=== PATIENT | female | born 1975 | race African-American/Black ===

== ENCOUNTER 2017-08-16 09:12 | Emergency (ER) | payer BC ==
--- NOTE | 2017-08-16 09:28 | EDM.PDOC ---
ED HPI GENERAL MEDICAL PROBLEM - General Chief Complaint: Back Pain or Injury Stated Complaint: LOWER BACK PAIN Time Seen by Provider: 08/16/17 09:24 - History of Present Illness INITIAL COMMENTS - FREE TEXT/NARRATIVE: HISTORY AND PHYSICAL: History of present illness: Patient's 42-year-old female presents with concern of low back pain that occurred after she was roughhousing with her children. She denies numbness weakness or incontinence of bowel or bladder she denies abdominal pain nausea vomiting or other concern Review of systems: As per history of present illness and below otherwise all systems reviewed and negative. Past medical history: As per history of present illness and as reviewed below otherwise noncontributory. Surgical history: As per history of present illness and as reviewed below otherwise noncontributory. Social history: No reported history of drug or alcohol abuse. Family history: As per history of present illness and as reviewed below otherwise noncontributory. Physical exam: HEENT: Atraumatic, normocephalic, pupils reactive, negative for conjunctival pallor or scleral icterus, mucous membranes moist, throat clear, neck supple, nontender, trachea midline. Lungs: Clear to auscultation, breath sounds equal bilaterally, chest nontender. Heart: S1S2, regular, negative for clicks, rubs, or JVD. Abdomen: Soft, nondistended, nontender. Negative for masses or hepatosplenomegaly. Negative for costovertebral tenderness. Pelvis: Stable nontender. Genitourinary: Deferred. Rectal: Deferred. Extremities: Atraumatic, negative for cords or calf pain. Neurovascular unremarkable. Neuro: Awake, alert, oriented. Cranial nerves II through XII unremarkable. Cerebellum unremarkable. Motor and sensory unremarkable throughout. Exam nonfocal. Back: Patient is some mild paravertebral tenderness at the level lumbar spine no vertebral body or point tenderness deep tendon reflexes are normal patient is able to stand on her toes back on her heels Diagnostics: Patient defers Therapeutics: None Impression: #1 lumbar strain #2 hypertension Definitive disposition and diagnosis as appropriate pending reevaluation and review of above. - Related Data Allergies Allergy/AdvReac Type Severity Reaction Status Date / Time No Known Allergies Allergy Verified 10/21/14 10:14 Home Meds: Home Meds . [No Known Home Meds] 10/21/14 [History] Social & Family History - Tobacco Use Smoking Status *Q: Current Every Day Smoker Years of Tobacco use: 10 Second Hand Smoke Exposure: No - Recreational Drug Use Recreational Drug Use: No ED ROS GENERAL - Review of Systems Review Of Systems: ROS reveals no pertinent complaints other than HPI. ED EXAM, GENERAL - Physical Exam Exam: See Below (dictation) Course - Vital Signs Text/Narrative:: I discussed with patient her elevated blood pressure and the need for further evaluation and possible medication patient defers workupshe'll see her private doctor on Friday she does agree to pain management for her lumbar strain Departure - Departure Time of Disposition: 09:28 Disposition: Home, Self-Care 01 Condition: Good Clinical Impression: Lumbar strain - Discharge Information Referrals: PCP,None [Primary Care Provider] - Additional Instructions: The following information is given to patients seen in the emergency department who are being discharged to home. This information is to outline your options for follow-up care. We provide all patients seen in our emergency department with a follow-up referral. The need for follow-up, as well as the timing and circumstances, are variable depending upon the specifics of your emergency department visit. If you don't have a primary care physician on staff, we will provide you with a referral. We always advise you to contact your personal physician following an emergency department visit to inform them of the circumstance of the visit and for follow-up with them and/or the need for any referrals to a consulting specialist. The emergency department will also refer you to a specialist when appropriate. This referral assures that you have the opportunity for followup care with a specialist. All of these measure are taken in an effort to provide you with optimal care, which includes your followup. Under all circumstances we always encourage you to contact your private physician who remains a resource for coordinating your care. When calling for followup care, please make the office aware that this follow-up is from your recent emergency room visit. If for any reason you are refused follow-up, please contact the [facility] emergency department at and asked to speak to the emergency department charge nurse. Ultram as prescribed follow-up on Friday private doctor for reevaluation and review of blood pressure as discussed return as needed as discussed
[2017-08-16 09:44] VITALS: BP 188/126
== END 2017-08-16 09:36 | disposition home or self-care (01) ==
LOC: MW.ED 09:12
DX: S39.012A Strain of muscle, fascia and tendon of lower back, initial encounter (principal); F17.210 Nicotine dependence, cigarettes, uncomplicated; I10 Essential (primary) hypertension; X58.XXXA Exposure to other specified factors, initial encounter
CPT/HCPCS: 99282

== ENCOUNTER 2017-12-31 14:25 | Emergency (ER) | payer BC ==
[2017-12-31 14:55] VITALS: BP 152/83
[2017-12-31] MEDS ORDERED: Ketorolac 60 MG/2 ML SDV IM ONE (15:00)
--- NOTE | 2017-12-31 15:04 | EDM.PDOC ---
ED HPI GENERAL MEDICAL PROBLEM - General Chief Complaint: Back Pain or Injury Stated Complaint: BACK HURTS Time Seen by Provider: 12/31/17 14:59 Source of Information: Reports: Patient History Limitations: Reports: No Limitations - History of Present Illness INITIAL COMMENTS - FREE TEXT/NARRATIVE: HISTORY AND PHYSICAL: History of present illness: Patient is a 42-year-old female here with complaint of low back pain. She states that she works at [employer] and was lifting boxes that weighed up to 50 pounds above her head and onto a shelf 5 days ago. Patient states that she started expanding low back pain shortly after that. She has had a history of low back pain. Patient denies any lower extremity numbness or tingling, extremity weakness, saddle anesthesia, footdrop, bowel or bladder incontinence, fever, chills. Patient's been using [id number] topical cream with little relief. Review of systems: As per history of present illness and below otherwise all systems reviewed and negative. Past medical history: As per history of present illness and as reviewed below otherwise noncontributory. Surgical history: As per history of present illness and as reviewed below otherwise noncontributory. Social history: No reported history of drug or alcohol abuse. Family history: As per history of present illness and as reviewed below otherwise noncontributory. Physical exam: General: Patient sitting comfortably in no acute distress and nontoxic appearing HEENT: Atraumatic, normocephalic, pupils reactive, negative for conjunctival pallor or scleral icterus, mucous membranes moist, throat clear, neck supple, nontender, trachea midline. No meningeal signs. Lungs: Clear to auscultation, breath sounds equal bilaterally, chest nontender. Heart: S1S2, regular, negative for clicks, rubs, or overt murmur. Abdomen: Soft, nondistended, nontender. Negative for masses or hepatosplenomegaly. Negative for costovertebral tenderness. Pelvis: Stable nontender. Genitourinary: Deferred. Rectal: Deferred. Spine: tender to palpation of lumbar paraspinals bilaterally. Patellar reflexes 2+. Inversion, eversion, dorsi and plantar flexion strength 5/5. Extremities: Atraumatic, negative for cords or calf pain. Neurovascular unremarkable. Neuro: Awake, alert, oriented. Cranial nerves II through XII unremarkable. Cerebellum unremarkable. Motor and sensory unremarkable throughout. Exam nonfocal. Notes: Diagnostics: None Therapeutics: Toradol 60mg IM Prescriptions: Diclofenac 75mg Flexeril 10mg Impression: Lumbar back sprain Plan: 1. Take medications as discussed. Heat or ice as needed. 2. Follow up with primary care provider. 3. Return to ED as needed as discussed. Definitive disposition and diagnosis as appropriate pending reevaluation and review of above. lower back Pain Score (Numeric/FACES): 8 - Related Data Allergies Allergy/AdvReac Type Severity Reaction Status Date / Time No Known Allergies Allergy Verified 12/31/17 14:43 Home Meds: Home Meds Cyclobenzaprine [Flexeril] 10 mg PO BEDTIME 10 Days #10 tab 12/31/17 [Rx] Diclofenac Sodium [Voltaren] 75 mg PO BIDMEALS 10 Days #20 tab.cr 12/31/17 [Rx] Past Medical History - Past Health History Medical/Surgical History: Denies Medical/Surgical History - Infectious Disease History Infectious Disease History: Reports: Chicken Pox - Past Surgical History Female Surgical History: Reports: Hysterectomy Social & Family History - Family History Family Medical History: Noncontributory - Tobacco Use Smoking Status *Q: Current Every Day Smoker Years of Tobacco use: 10 Packs/Tins Daily: 0.6 Second Hand Smoke Exposure: Yes - Caffeine Use Caffeine Use: Reports: Energy Drinks - Recreational Drug Use Recreational Drug Use: No ED ROS GENERAL - Review of Systems Review Of Systems: ROS reveals no pertinent complaints other than HPI. ED EXAM,LOWER BACK PAIN/INJURY - Physical Exam Exam: See Below (see dictation) Course - Vital Signs Last Recorded V/S: Last Vital Signs Temp 36.7 C 12/31/17 14:43 Pulse 90 12/31/17 14:43 Resp 16 12/31/17 14:43 BP 152/83 H 12/31/17 14:43 Pulse Ox 98 12/31/17 14:43 - Orders/Labs/Meds Orders: Active Orders 24 hr Category Date Time Status Hand Comp Min 3V Rt [CR] Stat Exams 12/31/17 14:44 Stop Req Departure - Departure Time of Disposition: 15:03 Disposition: Home, Self-Care 01 Condition: Good Clinical Impression: Lumbar back sprain - Discharge Information Prescriptions: Cyclobenzaprine [Flexeril] 10 mg PO BEDTIME 10 Days #10 tab Diclofenac Sodium [Voltaren] 75 mg PO BIDMEALS 10 Days #20 tab.cr Referrals: PCP,None [Primary Care Provider] - Additional Instructions: The following information is given to patients seen in the emergency department who are being discharged to home. This information is to outline your options for follow-up care. We provide all patients seen in our emergency department with a follow-up referral. The need for follow-up, as well as the timing and circumstances, are variable depending upon the specifics of your emergency department visit. If you don't have a primary care physician on staff, we will provide you with a referral. We always advise you to contact your personal physician following an emergency department visit to inform them of the circumstance of the visit and for follow-up with them and/or the need for any referrals to a consulting specialist. The emergency department will also refer you to a specialist when appropriate. This referral assures that you have the opportunity for follow-up care with a specialist. All of these measure are taken in an effort to provide you with optimal care, which includes your follow-up. Under all circumstances we always encourage you to contact your private physician who remains a resource for coordinating your care. When calling for follow-up care, please make the office aware that this follow-up is from your recent emergency room visit. If for any reason you are refused follow-up, please contact the [facility] Emergency Department at and asked to speak to the emergency department charge nurse. [facility] [address] [place] [id number] [facility] [address] [place] [id number] 1. Take medications as discussed. Heat or ice as needed. 2. Follow up with primary care provider. 3. Return to ED as needed as discussed.
== END 2017-12-31 15:27 | disposition home or self-care (01) ==
LOC: MW.ED 14:25
DX: S33.5XXA Sprain of ligaments of lumbar spine, initial encounter (principal); F17.210 Nicotine dependence, cigarettes, uncomplicated; X50.1XXA Overexertion from prolonged static or awkward postures, initial encounter
CPT/HCPCS: 96372; 99283; J1885

== ENCOUNTER 2018-11-19 13:36 | Emergency (ER) | payer SELFPAY ==
--- NOTE | 2018-11-19 13:49 | EDM.PDOC ---
ED HPI GENERAL MEDICAL PROBLEM - General Stated Complaint: HEADACHE Time Seen by Provider: 11/19/18 13:45 Source of Information: Reports: Patient History Limitations: Reports: No Limitations - History of Present Illness INITIAL COMMENTS - FREE TEXT/NARRATIVE: History of present illness: [] Review of systems: As per history of present illness and below otherwise all systems reviewed and negative. Past medical history: As per history of present illness and as reviewed below otherwise noncontributory. Surgical history: As per history of present illness and as reviewed below otherwise noncontributory. Social history: No reported history of drug or alcohol abuse. Family history: As per history of present illness and as reviewed below otherwise noncontributory. Physical exam: General: Well developed, well nourished in NAD HEENT: Atraumatic, normocephalic, pupils reactive, negative for conjunctival pallor or scleral icterus, mucous membranes moist, throat clear, neck supple, nontender, trachea midline. Lungs: Clear to auscultation, breath sounds equal bilaterally, chest nontender. Heart: S1S2, regular, negative for clicks, rubs, or JVD. Abdomen: NABS, Soft, nondistended, nontender. Negative for masses or hepatosplenomegaly. Negative for costovertebral tenderness. Pelvis: Stable nontender. Genitourinary: Deferred. Rectal: Deferred. Extremities: Atraumatic, negative for cords or calf pain. Neurovascular unremarkable. Neuro: Awake, alert, oriented. Cranial nerves II through XII unremarkable. Cerebellum unremarkable. Motor and sensory unremarkable throughout. Exam nonfocal. Skin:warm and dry Diagnostics: Therapeutics: ED Course: Impression: Prescriptions: Plan: Definitive disposition and diagnosis as appropriate pending reevaluation and review of above. - Related Data Allergies Allergy/AdvReac Type Severity Reaction Status Date / Time No Known Allergies Allergy Verified 12/31/17 14:43 Home Meds: Home Meds Cyclobenzaprine [Flexeril] 10 mg PO BEDTIME 10 Days #10 tab 12/31/17 [Rx] Diclofenac Sodium [Voltaren] 75 mg PO BIDMEALS 10 Days #20 tab.cr 12/31/17 [Rx] Past Medical History - Past Health History Medical/Surgical History: Denies Medical/Surgical History - Infectious Disease History Infectious Disease History: Reports: Chicken Pox - Past Surgical History Female Surgical History: Reports: Hysterectomy Social & Family History - Family History Family Medical History: Noncontributory - Caffeine Use Caffeine Use: Reports: Energy Drinks ED ROS GENERAL - Review of Systems Review Of Systems: See Below - Physical Exam Exam: See Below
== END 2018-11-19 14:36 | disposition left against medical advice (07) ==
LOC: MW.ED 13:36
DX: Z53.21 Procedure and treatment not carried out due to patient leaving prior to being seen by health care provider (principal)

== ENCOUNTER 2018-12-02 15:53 | Emergency (ER) | payer SELFPAY ==
[2018-12-02] MEDS ORDERED: Sodium Chloride 0.9% 2.5 ML Syringe FLUSH PRN (16:07)
[2018-12-02] MEDS ORDERED: Sodium Chloride 0.9% 1,000 ML IV ONE (16:07)
[2018-12-02] MEDS ORDERED: Sodium Chloride 0.9% 10 ML Syringe FLUSH PRN (16:07)
[2018-12-02] MEDS ORDERED: Labetalol 100 MG/20 ML MDV IVPUSH ONE ×2 (16:07→17:09)
--- NOTE | 2018-12-02 16:12 | EDM.PDOC ---
ED HPI GENERAL MEDICAL PROBLEM - General Chief Complaint: Headache Stated Complaint: HEADACHE Time Seen by Provider: 12/02/18 16:06 Source of Information: Reports: Patient History Limitations: Reports: No Limitations - History of Present Illness INITIAL COMMENTS - FREE TEXT/NARRATIVE: HISTORY AND PHYSICAL: History of present illness: Patient is a 43-year-old female presents to the ED with Tarik headache 2 days. She is complaining of pain across her forehead, nausea and states she has been having dizziness when standing up. She denies fevers, chills, chest pain, shortness of breath, vomiting, diarrhea, abdominal pain, visual changes. Denies significant past medical history Review of systems: As per history of present illness and below otherwise all systems reviewed and negative. Past medical history: As per history of present illness and as reviewed below otherwise noncontributory. Surgical history: As per history of present illness and as reviewed below otherwise noncontributory. Social history: No reported history of drug or alcohol abuse. Family history: As per history of present illness and as reviewed below otherwise noncontributory. Physical exam: General: Patient sitting comfortably in no acute distress and nontoxic appearing HEENT: Atraumatic, normocephalic, pupils reactive, negative for conjunctival pallor or scleral icterus, mucous membranes moist, throat clear, neck supple, nontender, trachea midline. No meningeal signs. Lungs: Clear to auscultation, breath sounds equal bilaterally, chest nontender. Heart: S1S2, regular, negative for clicks, rubs, or overt murmur. Abdomen: Soft, nondistended, nontender. Negative for masses or hepatosplenomegaly. Negative for costovertebral tenderness. No rigidity, rebound , guarding. Pelvis: Stable nontender. Genitourinary: Deferred. Rectal: Deferred. Extremities: Atraumatic, negative for cords or calf pain. Neurovascular unremarkable. Neuro: Awake, alert, oriented. Cranial nerves II through XII unremarkable. Cerebellum unremarkable. Motor and sensory unremarkable throughout. Exam nonfocal. Notes: Blood pressure and headache improved with labetalol Diagnostics: CBC, CMP, troponin, PT/INR, UA, EKG, head CT Therapeutics: 1 L normal saline IV 20 mg labetalol IV Prescriptions: Impression: Headache, hypertension Plan: Take medication as instructed Follow up with primary care provider Return to ED as needed as discussed Definitive disposition and diagnosis as appropriate pending reevaluation and review of above. Headache Pain Score (Numeric/FACES): 8 - Related Data Allergies Allergy/AdvReac Type Severity Reaction Status Date / Time No Known Allergies Allergy Verified 12/02/18 16:05 Home Meds: Home Meds Lisinopril/Hydrochlorothiazide [Lisinopril-HCTZ 10-12.5 MG] 1 tab PO DAILY #30 tablet 12/02/18 [Rx] Past Medical History - Past Health History Medical/Surgical History: Denies Medical/Surgical History - Infectious Disease History Infectious Disease History: Reports: Chicken Pox - Past Surgical History Female Surgical History: Reports: Hysterectomy Social & Family History - Family History Family Medical History: Noncontributory - Caffeine Use Caffeine Use: Reports: Energy Drinks ED ROS GENERAL - Review of Systems Review Of Systems: ROS reveals no pertinent complaints other than HPI. - Physical Exam Exam: See Below (See dictation) Course - Vital Signs Last Recorded V/S: Last Vital Signs Temp 97.3 F 12/02/18 16:01 Pulse 86 12/02/18 17:34 Resp 16 12/02/18 17:34 BP 162/95 H 12/02/18 17:34 Pulse Ox 99 12/02/18 17:34 - Orders/Labs/Meds Orders: Active Orders 24 hr Category Date Time Status EKG Documentation Completion [RC] STAT Care 12/02/18 16:06 Active CULTURE URINE [RM] Stat Lab 12/02/18 16:20 Received Sodium Chloride 0.9% [Saline Flush] Med 12/02/18 16:07 Active 10 ml FLUSH ASDIRECTED PRN Sodium Chloride 0.9% [Saline Flush] Med 12/02/18 16:07 Active 2.5 ml FLUSH ASDIRECTED PRN Saline Lock Insert [OM.PC] Stat Oth 12/02/18 16:06 Ordered Medication Orders Sodium Chloride (Saline Flush) 10 ml FLUSH ASDIRECTED PRN PRN Reason: Keep Vein Open Sodium Chloride (Saline Flush) 2.5 ml FLUSH ASDIRECTED PRN PRN Reason: Keep Vein Open Labs: Laboratory Tests 12/02/18 12/02/18 12/02/18 Range/Units 16:10 16:10 16:10 WBC 8.38 (4.0-11.0) K/uL RBC 4.31 (4.30-5.90) M/uL Hgb 12.1 (12.0-16.0) g/dL Hct 38.0 (36.0-46.0) % MCV 88.2 (80.0-98.0) fL MCH 28.1 (27.0-32.0) pg MCHC 31.8 (31.0-37.0) g/dL RDW Std Deviation 45.1 (28.0-62.0) fl RDW Coeff of Sumit 14 (11.0-15.0) % Plt Count 305 (150-400) K/uL MPV 9.70 (7.40-12.00) fL Add Manual Diff YES Neutrophils % (Manual) 51 (48.0-80.0) % Band Neutrophils % 1 % Lymphocytes % (Manual) 32 (16.0-40.0) % Monocytes % (Manual) 14 (0.0-15.0) % Myelocytes % 2 % Nucleated RBC % 0.0 /100WBC Absolute Seg Neuts 4.3 (1.4-5.7) Band Neutrophils # 0.1 Lymphocytes # (Manual) 2.7 H (0.6-2.4) Monocytes # (Manual) 1.2 H (0.0-0.8) Absolute Myelocytes 0.2 Nucleated RBCs # 0 K/uL INR 0.97 Sodium 143 (136-145) mmol/L Potassium 3.6 (3.5-5.1) mmol/L Chloride 107 (98-107) mmol/L Carbon Dioxide 25.1 (21.0-32.0) mmol/L BUN 13 (7.0-18.0) mg/dL Creatinine 0.6 (0.6-1.0) mg/dL Est Cr Clr Drug Dosing 118.78 mL/min Estimated GFR (MDRD) > 60.0 ml/min Glucose 100 (74-106) mg/dL Calcium 9.7 (8.5-10.1) mg/dL Total Bilirubin 0.2 (0.2-1.0) mg/dL AST 19 (15-37) IU/L ALT 29 (14-63) IU/L Alkaline Phosphatase 98 (46-116) U/L Troponin I < 0.050 (0.000-0.056) ng/mL Total Protein 7.2 (6.4-8.2) g/dL Albumin 3.1 L (3.4-5.0) g/dL Globulin 4.1 H (2.6-4.0) g/dL Albumin/Globulin Ratio 0.8 L (0.9-1.6) Urine Color Urine Appearance Urine pH (5.0-8.0) Ur Specific [place] (1.001-1.035) Urine Protein (NEGATIVE) mg/dL Urine Glucose (UA) (NEGATIVE) mg/dL Urine Ketones (NEGATIVE) mg/dL Urine Occult Blood (NEGATIVE) Urine Nitrite (NEGATIVE) Urine Bilirubin (NEGATIVE) Urine Urobilinogen (<2.0) EU/dL Ur Leukocyte Esterase (NEGATIVE) Urine RBC (0-2/HPF) Urine WBC (0-5/HPF) Ur Epithelial Cells (NONE-FEW) Urine Bacteria (NEGATIVE) 12/02/18 Range/Units 16:20 WBC (4.0-11.0) K/uL RBC (4.30-5.90) M/uL Hgb (12.0-16.0) g/dL Hct (36.0-46.0) % MCV (80.0-98.0) fL MCH (27.0-32.0) pg MCHC (31.0-37.0) g/dL RDW Std Deviation (28.0-62.0) fl RDW Coeff of Sumit (11.0-15.0) % Plt Count (150-400) K/uL MPV (7.40-12.00) fL Add Manual Diff Neutrophils % (Manual) (48.0-80.0) % Band Neutrophils % % Lymphocytes % (Manual) (16.0-40.0) % Monocytes % (Manual) (0.0-15.0) % Myelocytes % % Nucleated RBC % /100WBC Absolute Seg Neuts (1.4-5.7) Band Neutrophils # Lymphocytes # (Manual) (0.6-2.4) Monocytes # (Manual) (0.0-0.8) Absolute Myelocytes Nucleated RBCs # K/uL INR Sodium (136-145) mmol/L Potassium (3.5-5.1) mmol/L Chloride (98-107) mmol/L Carbon Dioxide (21.0-32.0) mmol/L BUN (7.0-18.0) mg/dL Creatinine (0.6-1.0) mg/dL Est Cr Clr Drug Dosing mL/min Estimated GFR (MDRD) ml/min Glucose (74-106) mg/dL Calcium (8.5-10.1) mg/dL Total Bilirubin (0.2-1.0) mg/dL AST (15-37) IU/L ALT (14-63) IU/L Alkaline Phosphatase (46-116) U/L Troponin I (0.000-0.056) ng/mL Total Protein (6.4-8.2) g/dL Albumin (3.4-5.0) g/dL Globulin (2.6-4.0) g/dL Albumin/Globulin Ratio (0.9-1.6) Urine Color YELLOW Urine Appearance SLT CLOUDY Urine pH 7.0 (5.0-8.0) Ur Specific [place] 1.015 (1.001-1.035) Urine Protein NEGATIVE (NEGATIVE) mg/dL Urine Glucose (UA) NEGATIVE (NEGATIVE) mg/dL Urine Ketones NEGATIVE (NEGATIVE) mg/dL Urine Occult Blood NEGATIVE (NEGATIVE) Urine Nitrite NEGATIVE (NEGATIVE) Urine Bilirubin NEGATIVE (NEGATIVE) Urine Urobilinogen 0.2 (<2.0) EU/dL Ur Leukocyte Esterase MODERATE H (NEGATIVE) Urine RBC 0-2 (0-2/HPF) Urine WBC 20-30 (0-5/HPF) Ur Epithelial Cells MANY (NONE-FEW) Urine Bacteria 1+ H (NEGATIVE) Meds: Medications Generic Name Dose Route Start Last Admin Trade Name Freq PRN Reason Stop Dose Admin Sodium Chloride 10 ml 12/02/18 16:07 Saline Flush FLUSH ASDIRECTED PRN Keep Vein Open Sodium Chloride 2.5 ml 12/02/18 16:07 Saline Flush FLUSH ASDIRECTED PRN Keep Vein Open Discontinued Medications Generic Name Dose Route Start Last Admin Trade Name Freq PRN Reason Stop Dose Admin Sodium Chloride 1,000 mls @ 999 mls/hr 12/02/18 16:07 12/02/18 16:26 Normal Saline IV 12/02/18 17:07 999 mls/hr STAT ONE Administration Labetalol HCl 10 mg 12/02/18 16:07 12/02/18 16:26 Normodyne IVPUSH 12/02/18 16:08 10 mg ONETIME ONE Administration Protocol Labetalol HCl 10 mg 12/02/18 17:09 12/02/18 17:13 Normodyne IVPUSH 12/02/18 17:10 10 mg ONETIME ONE Administration Protocol Departure - Departure Time of Disposition: 17:37 Disposition: Home, Self-Care 01 Condition: Good Clinical Impression: Hypertension Headache Qualifiers: Headache type: unspecified Headache chronicity pattern: acute headache Intractability: not intractable Qualified Code(s): R51 - Headache - Discharge Information Referrals: PCP,None [Primary Care Provider] - Forms: ED Department Discharge Additional Instructions: The following information is given to patients seen in the emergency department who are being discharged to home. This information is to outline your options for follow-up care. We provide all patients seen in our emergency department with a follow-up referral. The need for follow-up, as well as the timing and circumstances, are variable depending upon the specifics of your emergency department visit. If you don't have a primary care physician on staff, we will provide you with a referral. We always advise you to contact your personal physician following an emergency department visit to inform them of the circumstance of the visit and for follow-up with them and/or the need for any referrals to a consulting specialist. The emergency department will also refer you to a specialist when appropriate. This referral assures that you have the opportunity for follow-up care with a specialist. All of these measure are taken in an effort to provide you with optimal care, which includes your follow-up. Under all circumstances we always encourage you to contact your private physician who remains a resource for coordinating your care. When calling for follow-up care, please make the office aware that this follow-up is from your recent emergency room visit. If for any reason you are refused follow-up, please contact the [facility] Department at and asked to speak to the emergency department charge nurse. [facility] [address] [place] [id number] [id number] Take medication as instructed Follow up with primary care provider Return to ED as needed as discussed - My Orders Last 24 Hours: My Active Orders 12/02/18 16:06 EKG Documentation Completion [RC] STAT Saline Lock Insert [OM.PC] Stat 12/02/18 16:07 Sodium Chloride 0.9% [Saline Flush] 10 ml FLUSH ASDIRECTED PRN Sodium Chloride 0.9% [Saline Flush] 2.5 ml FLUSH ASDIRECTED PRN 12/02/18 16:20 CULTURE URINE [RM] Stat - Assessment/Plan Last 24 Hours: My Active Orders 12/02/18 16:06 EKG Documentation Completion [RC] STAT Saline Lock Insert [OM.PC] Stat 12/02/18 16:07 Sodium Chloride 0.9% [Saline Flush] 10 ml FLUSH ASDIRECTED PRN Sodium Chloride 0.9% [Saline Flush] 2.5 ml FLUSH ASDIRECTED PRN 12/02/18 16:20 CULTURE URINE [RM] Stat
[2018-12-02 16:56] LABS: CHLORIDE,CL 107 mmol/L (98-107); SODIUM,NA 143 mmol/L (136-145)
--- NOTE | 2018-12-02 17:33 | CT ---
INDICATION: Headache and dizzy for 2 days TECHNIQUE: CT Head without i.v. contrast. COMPARISON: 11/13/2017 FINDINGS: CSF space: The ventricles are normal for age. Brain: No evidence of mass, acute infarction or hemorrhage is seen. No mass-effect or midline shift is seen. The brain parenchyma is otherwise normal in appearance with preservation of the regan-white matter junction. Calvarium: The visualized paranasal sinuses are well aerated. The mastoid air cells are clear. The visualized orbits are grossly unremarkable. The calvarium is unremarkable in appearance with no fractures identified. IMPRESSION: 1. No evidence of acute infarction, intracranial hemorrhage, or mass-effect seen. Please note that all CT scans at this facility use dose modulation, iterative reconstruction, and/or weight-based dosing when appropriate to reduce radiation dose to as low as reasonably achievable. Dictated by: Jameel Cooper MD @ 12/02/2018 17:32:25 (Electronically Signed)
[2018-12-02 17:34] VITALS: BP 162/95
== END 2018-12-02 17:47 | disposition home or self-care (01) ==
LOC: MW.ED 15:53
DX: R51 Headache (principal); I10 Essential (primary) hypertension; Z79.899 Other long term (current) drug therapy
CPT/HCPCS: 36415; 70450; 80053; 81001; 84484; 85025; 85610; 87086; 87088; 87186; 93005; 96361; 96374; 96376; 99284; J3490; J7040

== ENCOUNTER 2019-03-25 10:56 | Observation (INO) | payer MEDICAID ==
[2019-03-25] MEDS ORDERED: diphenhydrAMINE 50 MG/ML SDV IVPUSH ONE (11:00)
[2019-03-25] MEDS ORDERED: methylPREDNISolone Sodium Succinate 125 MG/2 ML SDV IVPUSH ONE (11:00)
[2019-03-25] MEDS ORDERED: Famotidine 20 MG/2 ML SDV IVPUSH ONE (11:00)
[2019-03-25] MEDS ORDERED: Aspirin 81 MG Tab.Chew PO ONE (11:07)
--- NOTE | 2019-03-25 11:07 | EDM.PDOC ---
ED HPI GENERAL MEDICAL PROBLEM - General Chief Complaint: Allergic Reaction Stated Complaint: LIP SWELLING Time Seen by Provider: 03/25/19 11:01 Source of Information: Reports: Patient History Limitations: Reports: No Limitations - History of Present Illness INITIAL COMMENTS - FREE TEXT/NARRATIVE: HISTORY AND PHYSICAL: History of present illness: Patient is a 44 year old female who presents to the ED with c/o allergic reaction. Patient states she noticed yesterday that her lips were swollen. She followed up with her primary care provider, who recommended she routinely take Zantac and Benadryl and STOP taking her Lisinopril. She states she has been taking these medications (last dose was last evening) but is concerned that her lips are more swollen this morning and now has the sensation of there throat being tight. She has been checking her blood pressure, and is concerned that since she isn't taking her Lisinopril today that her readings are high. Since being triaged, she now has complaints of midsternal chest pain. Denies any other new exposures that could cause an allergic reaction. Denies any voice changes, harsh voice, or difficulty swallowing etc... Patient denies any fever, chills, headache, change in vision, syncope or near syncope. Denies any neck/back pain, shortness of breath or cough. Denies any abdominal pain, nausea, vomiting, diarrhea, constipation or dysuria. Has not noted any blood in urine or stool. Patient has been eating and drinking appropriately. Review of systems: As per history of present illness and below otherwise all systems reviewed and negative. Past medical history: As per history of present illness and as reviewed below otherwise noncontributory. Surgical history: As per history of present illness and as reviewed below otherwise noncontributory. Social history: See social history for further information Family history: As per history of present illness and as reviewed below otherwise noncontributory. Physical exam: General: Well developed and well nourished 44 year old female. A&O x3. Nontoxic appearing and in no acute distress. HEENT: Atraumatic, normocephalic, pupils equal and reactive bilaterally, negative for conjunctival pallor or scleral icterus, mucous membranes moist, TMs normal bilaterally, throat clear, neck supple, nontender, trachea midline. No drooling or trismus noted. No meningeal signs. No hot potato voice noted. Lungs: Clear to auscultation, breath sounds equal bilaterally, chest nontender. Heart: S1S2, regular rate and rhythm without overt murmur Abdomen: Soft, nondistended, nontender. Negative for masses or hepatosplenomegaly. Negative for costovertebral tenderness. Pelvis: Stable nontender. Skin: Upper lip swelling noted. Otherwise skin is intact, warm, dry. No lesions or rashes noted. Extremities: Atraumatic, moves all extremities per self without difficulty or deficits, negative for cords or calf pain. Neurovascular unremarkable. Neuro: Awake, alert, oriented. Cranial nerves II through XII unremarkable. Cerebellum unremarkable. Motor and sensory unremarkable throughout. Exam nonfocal. Notes: Physical examination is unremarkable. LS are clear with oxygen saturation of 100 % on room air. No change in voice. Patient was switched from Lisinopril to HCTZ. Hasn't yet started. Lab work is unremarkable. Chest pain is gone at this time. We discussed admission, which she would like as she states she have "never had chest pain before (although currently 0/10)" and is concerned about her lip swelling when she goes home. Dr Mckinney was consulted on this case, will admit for observation. Diagnostics: CBC, CMP, EKG, CXR, UA, HCGU Therapeutics: IV fluids, Benadryl, Famotidine, Solu-Medrol, Aspirin Impression: Angioedema Chest pain Uncontrolled HTN Plan: 1. STOP the LISINOPRIL and take the Hydrochlorothiazide as directed. Continue to monitor your blood pressure and follow up with your primary care provider for further management of this. 2. While symptomatic continue to routinely take Benadryl 50mg every 4-6 hours and Zantac 150mg twice daily. 3. Return to the ED as needed and as discussed. Definitive disposition and diagnosis as appropriate pending reevaluation and review of above. chest pain Pain Score (Numeric/FACES): 5 - Related Data Allergies Allergy/AdvReac Type Severity Reaction Status Date / Time lisinopril Allergy Swelling Verified 03/25/19 11:03 Home Meds: Home Meds Hydrochlorothiazide [Microzide] 03/25/19 [History] Past Medical History - Past Health History Medical/Surgical History: Denies Medical/Surgical History - Infectious Disease History Infectious Disease History: Reports: Chicken Pox - Past Surgical History Female Surgical History: Reports: Hysterectomy Social & Family History - Family History Family Medical History: Noncontributory - Caffeine Use Caffeine Use: Reports: Energy Drinks ED ROS ALLERGIC REACTION - Review of Systems Review Of Systems: Comprehensive ROS is negative, except as noted in HPI. ED EXAM GENERAL NO PERIP PULSE - Physical Exam Exam: See Below (See dictation) Course - Vital Signs Last Recorded V/S: Last Vital Signs Temp 97.8 F 03/25/19 10:59 Pulse 78 03/25/19 12:15 Resp 18 03/25/19 12:15 BP 166/106 H 03/25/19 12:33 Pulse Ox 97 03/25/19 12:15 - Orders/Labs/Meds Orders: Active Orders 24 hr Category Date Time Status Admission Status [Patient Status] [ADT] Stat ADT 03/25/19 12:39 Ordered EKG Documentation Completion [RC] STAT Care 03/25/19 11:00 Active HCG QUALITATIVE,URINE [URCHEM] Stat Lab 03/25/19 11:07 Ordered UA RFX LENIN AND CULT IF INDIC [URIN] Stat Lab 03/25/19 11:07 Ordered Labs: Laboratory Tests 03/25/19 03/25/19 03/25/19 Range/Units 11:05 11:05 11:05 WBC 6.08 (4.0-11.0) K/uL RBC 4.58 (4.30-5.90) M/uL Hgb 12.9 (12.0-16.0) g/dL Hct 39.4 (36.0-46.0) % MCV 86.0 (80.0-98.0) fL MCH 28.2 (27.0-32.0) pg MCHC 32.7 (31.0-37.0) g/dL RDW Std Deviation 45.8 (28.0-62.0) fl RDW Coeff of Sumit 15 (11.0-15.0) % Plt Count 272 (150-400) K/uL MPV 10.60 (7.40-12.00) fL Neut % (Auto) 62.1 (48.0-80.0) % Lymph % (Auto) 25.2 (16.0-40.0) % [place] % (Auto) 10.2 (0.0-15.0) % Eos % (Auto) 2.0 (0.0-7.0) % Baso % (Auto) 0.5 (0.0-1.5) % Neut # (Auto) 3.8 (1.4-5.7) K/uL Lymph # (Auto) 1.5 (0.6-2.4) K/uL [place] # (Auto) 0.6 (0.0-0.8) K/uL Eos # (Auto) 0.1 (0.0-0.7) K/uL Baso # (Auto) 0.0 (0.0-0.1) K/uL Nucleated RBC % 0.0 /100WBC Nucleated RBCs # 0 K/uL Sodium 140 (136-145) mmol/L Potassium 4.1 (3.5-5.1) mmol/L Chloride 104 (98-107) mmol/L Carbon Dioxide 24.4 (21.0-32.0) mmol/L BUN 14 (7.0-18.0) mg/dL Creatinine 0.5 L (0.6-1.0) mg/dL Est Cr Clr Drug Dosing 141.08 mL/min Estimated GFR (MDRD) > 60.0 ml/min Glucose 106 (74-106) mg/dL Calcium 9.2 (8.5-10.1) mg/dL Total Bilirubin 0.3 (0.2-1.0) mg/dL AST 31 (15-37) IU/L ALT 30 (14-63) IU/L Alkaline Phosphatase 95 (46-116) U/L Troponin I < 0.050 (0.000-0.056) ng/mL Total Protein 8.1 (6.4-8.2) g/dL Albumin 3.6 (3.4-5.0) g/dL Globulin 4.5 H (2.6-4.0) g/dL Albumin/Globulin Ratio 0.8 L (0.9-1.6) Meds: Medications Discontinued Medications Generic Name Dose Route Start Last Admin Trade Name Freq PRN Reason Stop Dose Admin Aspirin 324 mg 03/25/19 11:07 03/25/19 11:18 Aspirin PO 03/25/19 11:08 324 mg ONETIME ONE Administration Clonidine HCl 0.1 mg 03/25/19 12:20 03/25/19 12:33 Catapres PO 03/25/19 12:21 0.1 mg ONETIME ONE Administration Diphenhydramine HCl 50 mg 03/25/19 11:00 03/25/19 11:23 Benadryl IVPUSH 03/25/19 11:01 50 mg ONETIME ONE Administration Famotidine 20 mg 03/25/19 11:00 03/25/19 11:21 Pepcid IVPUSH 03/25/19 11:01 20 mg ONETIME ONE Administration Methylprednisolone Sodium Succinate 125 mg 03/25/19 11:00 03/25/19 11:18 Solu-Medrol IVPUSH 03/25/19 11:01 125 mg ONETIME ONE Administration Nitroglycerin 0.4 mg 03/25/19 12:09 Nitrostat SL Q5M PRN Chest Pain Departure - Departure Time of Disposition: 12:45 Disposition: Refer to Observation Clinical Impression: Uncontrolled hypertension Chest pain Qualifiers: Chest pain type: unspecified Qualified Code(s): R07.9 - Chest pain, unspecified Angioedema Qualifiers: Encounter type: initial encounter Qualified Code(s): T78.3XXA - Angioneurotic edema, initial encounter - Discharge Information Referrals: Victoria Sweet MD [Primary Care Provider] - Sepsis Event Note - Focused Exam Vital Signs: Vital Signs Temp Pulse Resp BP BP Pulse Ox 03/25/19 12:33 166/106 H 03/25/19 12:15 78 18 165/112 H 97 03/25/19 10:59 97.8 F 87 20 200/145 H 99 Date Exam was Performed: 03/25/19 Time Exam was Performed: 12:45 - My Orders Last 24 Hours: My Active Orders 03/25/19 11:00 EKG Documentation Completion [RC] STAT 03/25/19 11:07 HCG QUALITATIVE,URINE [URCHEM] Stat UA RFX LENIN AND CULT IF INDIC [URIN] Stat 03/25/19 12:39 Admission Status [Patient Status] [ADT] Stat - Assessment/Plan Last 24 Hours: My Active Orders 03/25/19 11:00 EKG Documentation Completion [RC] STAT 03/25/19 11:07 HCG QUALITATIVE,URINE [URCHEM] Stat UA RFX LENIN AND CULT IF INDIC [URIN] Stat 03/25/19 12:39 Admission Status [Patient Status] [ADT] Stat
[2019-03-25 11:43] LABS: BLOOD UREA NITROGEN,BUN 14 mg/dL (7.0-18.0); CARBON DIOXIDE,CO2 24.4 mmol/L (21.0-32.0); CHLORIDE,CL 104 mmol/L (98-107); GLUCOSE RANDOM 106 mg/dL (74-106); POTASSIUM,K 4.1 mmol/L (3.5-5.1); SODIUM,NA 140 mmol/L (136-145)
--- NOTE | 2019-03-25 11:52 | CR ---
EXAM DATE: 03/25/19 PATIENT'S AGE: 44 Chest: Portable view of the chest was obtained. Comparison: No prior chest x-ray. Heart size and mediastinum are normal. Lungs are clear. Bony structures are grossly intact. Impression: 1. Nothing acute is seen on portable chest x-ray. Diagnostic code #1 This report was dictated in [place] Standard Time Report Signed by Proxy. [facility]
[2019-03-25] MEDS ORDERED: Nitroglycerin 0.4 MG Tab.SL SL PRN (12:09)
[2019-03-25] MEDS ORDERED: cloNIDine 0.1 MG Tab PO ONE (12:20)
[2019-03-25] MEDS ORDERED: diphenhydrAMINE 50 MG/ML SDV IVPUSH PRN (13:26)
[2019-03-25] MEDS ORDERED: Sodium Chloride 0.9% 2.5 ML Syringe FLUSH PRN (13:26)
[2019-03-25] MEDS ORDERED: Ondansetron 4 MG/2 ML SDV IVPUSH PRN (13:26)
[2019-03-25] MEDS ORDERED: Albuterol 0.083% 2.5 MG/3 ML Neb Soln NEB PRN (13:26)
[2019-03-25] MEDS ORDERED: Acetaminophen 325 MG Tab PO PRN (13:26)
--- NOTE | 2019-03-25 13:52 | PCM.HP.2 ---
Addendum entered and electronically signed by Lenka Gomez NP 03/25/19 15:46 : Patient has had partial hysterectomy, ovaries removed when she was 21 years old. Original Note: H&P History of Present Illness - General Date of Service: 03/25/19 Admit Problem/Dx: Admission Diagnosis/Problem Admission Diagnosis/Problem Angioedema of lips Source of Information: Patient History Limitations: Reports: No Limitations - History of Present Illness Initial Comments - Free Text/Narative: This 44 year old AA female with pmh of HTN, obesity and tobacco dependence presented to the ED with complaints of swelling to her lips and feeling like her airway was closing. She was recently restarted on Lisinopril/HCTZ for blood pressure by her PCP. She reprots the swelling started yesterday and became quite significant. She spoke with PCP who told her to stop the Lisinopril and take Benadryl and Zantac. She was worried about her BP though and continued to take Lisinopril, which last dose was last night. She report the swelling significantly worsened last night. She took Benadryl but continued to have airway tightness so she came in today. In the ED she also reported midsternal chest pain, worsened with deep breath. No diaphoresis or shortness of breath. She denies fevers, chills or URI symptoms. No dyspnea. No abdominal pain, reports mild diarrhea over the last day, but all her grandkids have a little stomach bug too and she watched them the other day. She reports significant family history of CAD, renal disease and DM. She smokes 1/4 ppd of cigarettes, social alcohol use and no recreational drug use. In the ED Labwork WNL, Troponin negative. EKG SR with no T wave inversions or ST changes. CXR negative. She was given Benadryl, Pepcid, Solumedrol 125 mg IV and ASA. BP noted to be 160-180/100s, she was given Clonidine 0.1 mg PO. She will be added for angioedema secondary to SEVEN inhibitor. chest pain Pain Score (Numeric/FACES): 5 - Related Data Allergies/Adverse Reactions: Allergies Allergy/AdvReac Type Severity Reaction Status Date / Time lisinopril Allergy Swelling Verified 03/25/19 11:03 Home Medications: Home Meds Hydrochlorothiazide [Microzide] 12/12/19 [History] Past Medical History - Past Health History Medical/Surgical History: Denies Medical/Surgical History Cardiovascular History: Reports: Hypertension. Denies: Afib, Blood Clots/VTE/ DVT, CAD, Heart Failure, [place] Respiratory History: Reports: None. Denies: Asthma, COPD Gastrointestinal History: Reports: None Genitourinary History: Reports: None Musculoskeletal History: Reports: None Psychiatric History: Reports: None. Denies: Anxiety, Depression Endocrine/Metabolic History: Reports: Other (See Below). 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 Denies: Fever, Chills, Malaise, Weakness HEENT: Reports: Other (swelling to lip and airway tightness) Pulmonary: Reports: No Symptoms. Denies: Shortness of Breath Cardiovascular: Reports: Chest Pain (no longer having) Gastrointestinal: Reports: No Symptoms. Denies: Abdominal Pain, Black Stool, Bloody Stool Genitourinary: Reports: No Symptoms. Denies: Dysuria, Frequency, Burning Skin: Reports: No Symptoms Psychiatric: Reports: No Symptoms Neurological: Reports: No Symptoms Hematologic/Lymphatic: Reports: No Symptoms Immunologic: Reports: Other (Angioedema) Exam - Exam Exam: See Below - Vital Signs Vital Signs: Last Vital Signs Temp 97.8 F 03/25/19 10:59 Pulse 80 03/25/19 13:25 Resp 18 03/25/19 13:25 BP 157/102 H 03/25/19 13:25 Pulse Ox 99 03/25/19 13:25 Weight: 104.326 kg - Exam General: Alert, Oriented HEENT: Conjunctiva Clear, Mucosa Moist & Spencer, Pupils Equal, Other (oralabia noted to have edema, improved from pictures from last night, but still swollen. Mild facial angioedema noted, ) Neck: Supple, Trachea Midline Lungs: Clear to Auscultation, Normal Respiratory Effort. No: Decreased Breath Sounds, Stridor, Wheezing Cardiovascular: Regular Rate, Regular Rhythm, Normal S1, Normal S2. No: Systolic Murmur GI/Abdominal Exam: Normal Bowel Sounds, Soft, Non-Tender Extremities: Normal Inspection, Normal Range of Motion, Non-Tender, No Pedal Edema Neuro Extensive - Mental Status: Alert, Oriented x3 Neuro Extensive - Motor, Sensory, Reflexes: CN II-XII Intact Psychiatric: Alert, Normal Affect, Normal Mood - Patient Data Lab Results Last 24 hrs: Laboratory Results - last 24 hr 03/25/19 03/25/19 03/25/19 Range/Units 11:05 11:05 11:05 WBC 6.08 (4.0-11.0) K/uL RBC 4.58 (4.30-5.90) M/uL Hgb 12.9 (12.0-16.0) g/dL Hct 39.4 (36.0-46.0) % MCV 86.0 (80.0-98.0) fL MCH 28.2 (27.0-32.0) pg MCHC 32.7 (31.0-37.0) g/dL RDW Std Deviation 45.8 (28.0-62.0) fl RDW Coeff of Sumit 15 (11.0-15.0) % Plt Count 272 (150-400) K/uL MPV 10.60 (7.40-12.00) fL Neut % (Auto) 62.1 (48.0-80.0) % Lymph % (Auto) 25.2 (16.0-40.0) % [place] % (Auto) 10.2 (0.0-15.0) % Eos % (Auto) 2.0 (0.0-7.0) % Baso % (Auto) 0.5 (0.0-1.5) % Neut # (Auto) 3.8 (1.4-5.7) K/uL Lymph # (Auto) 1.5 (0.6-2.4) K/uL [place] # (Auto) 0.6 (0.0-0.8) K/uL Eos # (Auto) 0.1 (0.0-0.7) K/uL Baso # (Auto) 0.0 (0.0-0.1) K/uL Nucleated RBC % 0.0 /100WBC Nucleated RBCs # 0 K/uL Sodium 140 (136-145) mmol/L Potassium 4.1 (3.5-5.1) mmol/L Chloride 104 (98-107) mmol/L Carbon Dioxide 24.4 (21.0-32.0) mmol/L BUN 14 (7.0-18.0) mg/dL Creatinine 0.5 L (0.6-1.0) mg/dL Est Cr Clr Drug Dosing 141.08 mL/min Estimated GFR (MDRD) > 60.0 ml/min Glucose 106 (74-106) mg/dL Calcium 9.2 (8.5-10.1) mg/dL Total Bilirubin 0.3 (0.2-1.0) mg/dL AST 31 (15-37) IU/L ALT 30 (14-63) IU/L Alkaline Phosphatase 95 (46-116) U/L Troponin I < 0.050 (0.000-0.056) ng/mL Total Protein 8.1 (6.4-8.2) g/dL Albumin 3.6 (3.4-5.0) g/dL Globulin 4.5 H (2.6-4.0) g/dL Albumin/Globulin Ratio 0.8 L (0.9-1.6) Result Diagrams: 03/25/19 11:05 03/25/19 11:05 EKG INTERPRETATION EKG Date: 03/25/19 Rhythm: NSR P-Wave: Present QRS: Normal ST-T: Normal QT: Normal Sepsis Event Note - Evaluation Sepsis Screening Result: No Definite Risk - Focused Exam Vital Signs: Vital Signs Temp Pulse Resp BP BP Pulse Ox 03/25/19 13:25 80 18 157/102 H 99 03/25/19 12:33 166/106 H 03/25/19 12:15 78 18 165/112 H 97 03/25/19 10:59 97.8 F 87 20 200/145 H 99 Date Exam was Performed: 03/25/19 Time Exam was Performed: 14:02 - Problem List (1) Angioedema SNOMED Code(s): 19470903 ICD Code: T78.3XXA - ANGIONEUROTIC EDEMA, INITIAL ENCOUNTER Status: Acute Current Visit: Yes Qualifiers: Encounter type: initial encounter Qualified Code(s): T78.3XXA - Angioneurotic edema, initial encounter (2) Chest pain SNOMED Code(s): 05551862 ICD Code: R07.9 - CHEST PAIN, UNSPECIFIED Status: Acute Current Visit: Yes Qualifiers: Chest pain type: unspecified Qualified Code(s): R07.9 - Chest pain, unspecified (3) Headache SNOMED Code(s): 21041306 ICD Code: R51 - HEADACHE Status: Acute Current Visit: No Qualifiers: Headache type: unspecified Headache chronicity pattern: acute headache Intractability: not intractable Qualified Code(s): R51 - Headache (4) Tobacco dependence SNOMED Code(s): 59465293 ICD Code: F17.200 - NICOTINE DEPENDENCE, UNSPECIFIED, UNCOMPLICATED Status : Chronic Current Visit: Yes (5) Obesity SNOMED Code(s): 523909885, 127784827 ICD Code: E66.9 - OBESITY, UNSPECIFIED Status: Chronic Current Visit: Yes (6) Uncontrolled hypertension SNOMED Code(s): 88850298, 59516856 ICD Code: I10 - ESSENTIAL (PRIMARY) HYPERTENSION Status: Chronic Current Visit: Yes Problem List Initiated/Reviewed/Updated: Yes Orders Last 24hrs: Active Orders 24 hr Category Date Time Status Admission Status [Patient Status] [ADT] Stat ADT 03/25/19 12:39 Active Antiembolic Devices [RC] PER UNIT ROUTINE Care 03/25/19 13:27 Active EKG Documentation Completion [RC] STAT Care 03/25/19 11:00 Active Intake and Output [RC] QSHIFT Care 03/25/19 13:26 Active Oxygen Therapy [RC] PRN Care 03/25/19 13:26 Active Pulse Oximetry [RC] CONTINUOUS Care 03/25/19 13:26 Active RT Aerosol Therapy [RC] ASDIRECTED Care 03/25/19 13:29 Active Telemetry Monitoring [Cardiac Monitoring] [RC] . Care 03/25/19 13:26 Active DIRECTED Up ad Chrissie [RC] ASDIRECTED Care 03/25/19 13:26 Active VTE/DVT Education [RC] PER UNIT ROUTINE Care 03/25/19 13:26 Active Vital Signs [RC] Q4H Care 03/25/19 13:26 Active Heart Healthy Diet [DIET] Diet 03/25/19 Lunch Active HCG QUALITATIVE,SERUM [CHEM] Routine Lab 03/25/19 13:32 Ordered TROPONIN I [CHEM] Q6H Lab 03/25/19 17:00 Ordered TROPONIN I [CHEM] Q6H Lab 03/25/19 23:00 Ordered UA RFX LENIN AND CULT IF INDIC [URIN] Stat Lab 03/25/19 11:07 Ordered Acetaminophen [Tylenol] Med 03/25/19 13:26 Active 650 mg PO Q4H PRN Albuterol [Proventil Neb Soln] Med 03/25/19 13:26 Active 2.5 mg NEB Q2H PRN Loratadine [Claritin] Med 03/25/19 13:30 Active 10 mg PO BID Ondansetron [Zofran] Med 03/25/19 13:26 Active 4 mg IVPUSH Q4H PRN Sodium Chloride 0.9% [Saline Flush] Med 03/25/19 13:26 Active 2.5 ml FLUSH ASDIRECTED PRN amLODIPine [Norvasc] Med 03/25/19 13:45 Active 5 mg PO DAILY diphenhydrAMINE [Benadryl] Med 03/25/19 13:26 Active 25 mg IVPUSH Q4H PRN methylPREDNISolone Sod Succ [Solu-MEDROL] Med 03/25/19 22:00 Active 80 mg IVPUSH Q12H Saline Lock Insert [OM.PC] Routine Oth 03/25/19 13:26 Ordered Sequential Compression Device [OM.PC] Per Unit Routine Oth 03/25/19 13:27 Ordered Resuscitation Status Routine Resus Stat 03/25/19 13:26 Ordered Medication Orders Acetaminophen (Tylenol) 650 mg PO Q4H PRN PRN Reason: Pain (Mild 1-3)/fever Albuterol (Proventil Neb Soln) 2.5 mg NEB Q2H PRN PRN Reason: Shortness Of Breath/wheezing Amlodipine Besylate (Norvasc) 5 mg PO DAILY PRUDENCIO Diphenhydramine HCl (Benadryl) 25 mg IVPUSH Q4H PRN PRN Reason: swelling Loratadine (Claritin) 10 mg PO BID PRUDENCIO Methylprednisolone Sodium Succinate (Solu-Medrol) 80 mg IVPUSH Q12H PRUDENCIO Ondansetron HCl (Zofran) 4 mg IVPUSH Q4H PRN PRN Reason: Nausea Sodium Chloride (Saline Flush) 2.5 ml FLUSH ASDIRECTED PRN PRN Reason: Keep Vein Open Assessment/Plan Comment:: This 44 year old AA female admitted for angioedema, chest pain R/O ACS, and uncontrolled HTN 1. Angioedema: Monitor on continuous pulse ox overnight and telemetry. Continue Benadryl, Loratidine, and Solumedrol 80 mg IV Q12h. Discontinue Lisinopril. 2. Chest pain: Could be related to angioedema and HTN. Will trend Troponins, monitor on telemetry. Obtain lipid panel, A1c and TSH. 3. Uncontrolled HTN: mild headache today, reports she gets this when BP is elevated. Wilil start HCTZ again 25 mg also star Norvasc 5 mg and monitor. Encouraged tobacco cessation and weight loss to help improve BP as well, consider DASH diet. VTE prophylaxis: SCDs Dispo: 1-2 days. - Mortality Measure Prognosis:: Good
[2019-03-25] MEDS: Loratadine 10 MG Tab PO SCH ×2 (14:25→21:45)
[2019-03-25] MEDS: Hydrochlorothiazide 25 MG Tab PO SCH (14:25)
[2019-03-25] MEDS: amLODIPine 5 MG Tab PO SCH (14:25)
[2019-03-25 14:37] LABS: HEMOGLOBIN A1C 6.2 % (4.5-6.2)
[2019-03-25] MEDS: methylPREDNISolone Sodium Succinate 40 MG/1 ML SDV IVPUSH SCH (21:47)
[2019-03-26 08:08] VITALS: PULSE 70
[2019-03-26] MEDS: Loratadine 10 MG Tab PO SCH (08:29)
[2019-03-26] MEDS: amLODIPine 5 MG Tab PO SCH (08:30)
[2019-03-26] MEDS: Hydrochlorothiazide 25 MG Tab PO SCH (08:30)
[2019-03-26] MEDS ORDERED: amLODIPine 5 MG Tab PO SCH (09:45)
--- NOTE | 2019-03-26 09:53 | PCM.DCSUM1 ---
Discharge Summary - Hospital Course Brief History: This 44 year old AA female with pmh of HTN, obesity and tobacco dependence presented to the ED with complaints of swelling to her lips and feeling like her airway was closing. She was recently restarted on Lisinopril/ HCTZ for blood pressure by her PCP. She reprots the swelling started yesterday and became quite significant. She spoke with PCP who told her to stop the Lisinopril and take Benadryl and Zantac. She was worried about her BP though and continued to take Lisinopril, which last dose was last night. She report the swelling significantly worsened last night. She took Benadryl but continued to have airway tightness so she came in today. In the ED she also reported midsternal chest pain, worsened with deep breath. No diaphoresis or shortness of breath. She denies fevers, chills or URI symptoms. No dyspnea. No abdominal pain, reports mild diarrhea over the last day, but all her grandkids have a little stomach bug too and she watched them the other day. She reports significant family history of CAD, renal disease and DM. She smokes 1/4 ppd of cigarettes, social alcohol use and no recreational drug use. In the ED Labwork WNL, Troponin negative. EKG SR with no T wave inversions or ST changes. CXR negative. She was given Benadryl, Pepcid, Solumedrol 125 mg IV and ASA. BP noted to be 160-180/100s, she was given Clonidine 0.1 mg PO. She will be added for angioedema secondary to SEVEN inhibitor. Diagnosis: Stroke: No - Discharge Data Discharge Date: 03/26/19 Discharge Disposition: Home, Self-Care 01 Condition: Stable - Referral to Home Health Primary Care Physician: Victoria Sweet MD - Discharge Diagnosis/Problem(s) (1) Angioedema SNOMED Code(s): 61238374 ICD Code: T78.3XXA - ANGIONEUROTIC EDEMA, INITIAL ENCOUNTER Status: Acute Current Visit: Yes Qualifiers: Encounter type: initial encounter Qualified Code(s): T78.3XXA - Angioneurotic edema, initial encounter (2) Chest pain SNOMED Code(s): 05363941 ICD Code: R07.9 - CHEST PAIN, UNSPECIFIED Status: Acute Current Visit: Yes Qualifiers: Chest pain type: unspecified Qualified Code(s): R07.9 - Chest pain, unspecified (3) Headache SNOMED Code(s): 28757925 ICD Code: R51 - HEADACHE Status: Acute Current Visit: No Qualifiers: Headache type: unspecified Headache chronicity pattern: acute headache Intractability: not intractable Qualified Code(s): R51 - Headache (4) Tobacco dependence SNOMED Code(s): 82723485 ICD Code: F17.200 - NICOTINE DEPENDENCE, UNSPECIFIED, UNCOMPLICATED Status : Chronic Current Visit: Yes (5) Obesity SNOMED Code(s): 864407971, 612748507 ICD Code: E66.9 - OBESITY, UNSPECIFIED Status: Chronic Current Visit: Yes (6) Uncontrolled hypertension SNOMED Code(s): 47095344, 66933956 ICD Code: I10 - ESSENTIAL (PRIMARY) HYPERTENSION Status: Chronic Current Visit: Yes - Patient Instructions Diet: Heart Healthy Diet Activity: No Strenuous Activities, Rest and Relax Today Showering/Bathing: May Shower Notify Provider of: Fever, Increased Pain, Swelling and Redness, Drainage, Nausea and/or Vomiting - Discharge Plan *PRESCRIPTION DRUG MONITORING PROGRAM REVIEWED*: Not Applicable *COPY OF PRESCRIPTION DRUG MONITORING REPORT IN PATIENT KRAIG: Not Applicable Prescriptions/Med Rec: amLODIPine Besylate [Amlodipine Besylate] 10 mg PO DAILY #30 tablet diphenhydrAMINE [Benadryl] 25 mg PO QID PRN #1 tablet PRN Reason: Swelling. Loratadine [Claritin] 10 mg PO BID #30 tablet predniSONE [Prednisone] 40 mg PO DAILY #8 tablet Home Medications: Home Meds Acetaminophen/Caffeine [Excedrin Tension Headache Cplt] 1 each PO ASDIRECTED 04/01 [History] Hydrochlorothiazide [Microzide] 25 mg PO DAILY 03/25/19 [History] Acetaminophen [Tylenol] 650 mg PO Q4H PRN tablet 03/26/19 [Rx] Loratadine [Claritin] 10 mg PO BID #30 tablet 03/26/19 [Rx] amLODIPine Besylate [Amlodipine Besylate] 10 mg PO DAILY #30 tablet 03/26/19 [Rx ] diphenhydrAMINE [Benadryl] 25 mg PO QID PRN #1 tablet 03/26/19 [Rx] predniSONE [Prednisone] 40 mg PO DAILY #8 tablet 03/26/19 [Rx] Oxygen Therapy Mode: Room Air Patient Handouts: Angioedema, [id number], Heart-Healthy Eating Plan, Easy-to- Read, Diphenhydramine capsules or tablets, Drug Allergy, [id number], Amlodipine tablets, Low-Sodium Eating Plan, Prednisone tablets, Loratadine capsules or tablets Referrals: [facility] [Outside] Meme Alberto NP [Nurse Practitioner] - 04/09/19 9:45 am (The appointment was not able to be made with Victoria Sweet, due to no appointments available. Arrive 15 minutes early with a photo ID and insurance card. ) - Discharge Summary/Plan Comment DC Time >30 min.: No Discharge Summary/Plan Comment: Admitting Diagnoses: Angioedema secondary to Lisinopril Chest pain Uncontrolled HTN Discharge Diagnoses: Angioedema secondary to Lisinopril Chest pain resolved Uncontrolled HTN Borderline DM Type 2 Other PMH Obesity Tobacco dependence Tangela was admitted for angioedema secondary to Lisinopril. She reports she took her last dose of Lisinopril the night prior to coming because she was nervous about her blood pressure. She was instructed to stop taking it by PCP earlier in the week due to her lip swelling. She was given Veronica-medrol 80 mg IV BID and Loratadine. No stridor or airway concerns overnight. Lip swelling has improved significantly. BP remains 160-180/90-100. I did continue HCTZ 25 mg but added Amlodipine 10 mg. She also has mild chest tightness in the ED when she arrived with angioedema and air tightness. She was monitored on telemetry and Troponins trended, ACS was ruled out. Outpatient stress test will be arrnaged. She will be discharged today, I will continue Prednisone 40 mg PO for 4 more days as well as Loratadine and PRN Benadryl. She is to continue HCTZ and start Amlodipine. We did speak at length about lifestyle changes as her A1c is 6.2, borderline for DM type 2. She also had mildly elevated cholesterol with a total at 243, LDL 144 and HDL 84, triglycerides 73. TSH 0.79. She was educated on healthier choices for foods including the DASH diet. She verbalized understanding and would try make changes at home. She was encouraged to return to the ED or clinic if swelling worsened and she had concerns with breathing. - Patient Data Vitals - Most Recent: Last Vital Signs Temp 97.2 F 03/26/19 08:00 Pulse 70 03/26/19 08:00 Resp 16 03/26/19 08:00 BP 183/119 H 03/26/19 08:30 Pulse Ox 96 03/26/19 08:00 Weight - Most Recent: 104.326 kg I&O - Last 24 hours: Intake & Output 03/25/19 03/26/19 03/26/19 22:59 06:59 14:59 Intake Total 840 950 Output Total 550 400 Balance 290 550 Lab Results - Last 24 hrs: Laboratory Results - last 24 hr 03/25/19 03/25/19 03/25/19 Range/Units 11:05 11:05 11:05 WBC 6.08 (4.0-11.0) K/uL RBC 4.58 (4.30-5.90) M/uL Hgb 12.9 (12.0-16.0) g/dL Hct 39.4 (36.0-46.0) % MCV 86.0 (80.0-98.0) fL MCH 28.2 (27.0-32.0) pg MCHC 32.7 (31.0-37.0) g/dL RDW Std Deviation 45.8 (28.0-62.0) fl RDW Coeff of Sumit 15 (11.0-15.0) % Plt Count 272 (150-400) K/uL MPV 10.60 (7.40-12.00) fL Neut % (Auto) 62.1 (48.0-80.0) % Lymph % (Auto) 25.2 (16.0-40.0) % [place] % (Auto) 10.2 (0.0-15.0) % Eos % (Auto) 2.0 (0.0-7.0) % Baso % (Auto) 0.5 (0.0-1.5) % Neut # (Auto) 3.8 (1.4-5.7) K/uL Lymph # (Auto) 1.5 (0.6-2.4) K/uL [place] # (Auto) 0.6 (0.0-0.8) K/uL Eos # (Auto) 0.1 (0.0-0.7) K/uL Baso # (Auto) 0.0 (0.0-0.1) K/uL Nucleated RBC % 0.0 /100WBC Nucleated RBCs # 0 K/uL Sodium 140 (136-145) mmol/L Potassium 4.1 (3.5-5.1) mmol/L Chloride 104 (98-107) mmol/L Carbon Dioxide 24.4 (21.0-32.0) mmol/L BUN 14 (7.0-18.0) mg/dL Creatinine 0.5 L (0.6-1.0) mg/dL Est Cr Clr Drug Dosing 141.08 mL/min Estimated GFR (MDRD) > 60.0 ml/min Glucose 106 (74-106) mg/dL Hemoglobin A1c (4.5-6.2) % Calcium 9.2 (8.5-10.1) mg/dL Total Bilirubin 0.3 (0.2-1.0) mg/dL AST 31 (15-37) IU/L ALT 30 (14-63) IU/L Alkaline Phosphatase 95 (46-116) U/L Troponin I < 0.050 (0.000-0.056) ng/mL Total Protein 8.1 (6.4-8.2) g/dL Albumin 3.6 (3.4-5.0) g/dL Globulin 4.5 H (2.6-4.0) g/dL Albumin/Globulin Ratio 0.8 L (0.9-1.6) Triglycerides (0-200) mg/dL Cholesterol (50-200) mg/dL LDL Cholesterol, Calc (60-180) mg/dL VLDL Cholesterol (5-55) mg/dL HDL Cholesterol (40-60) mg/dL Cholesterol/HDL Ratio (3.3-6.0) TSH 3rd Generation (0.36-3.74) uIU/mL HCG, Qual (NEG) Urine Color Urine Appearance Urine pH (5.0-8.0) Ur Specific [place] (1.001-1.035) Urine Protein (NEGATIVE) mg/dL Urine Glucose (UA) (NEGATIVE) mg/dL Urine Ketones (NEGATIVE) mg/dL Urine Occult Blood (NEGATIVE) Urine Nitrite (NEGATIVE) Urine Bilirubin (NEGATIVE) Urine Urobilinogen (<2.0) EU/dL Ur Leukocyte Esterase (NEGATIVE) 03/25/19 03/25/19 03/25/19 Range/Units 11:05 11:05 13:51 WBC (4.0-11.0) K/uL RBC (4.30-5.90) M/uL Hgb (12.0-16.0) g/dL Hct (36.0-46.0) % MCV (80.0-98.0) fL MCH (27.0-32.0) pg MCHC (31.0-37.0) g/dL RDW Std Deviation (28.0-62.0) fl RDW Coeff of Smuit (11.0-15.0) % Plt Count (150-400) K/uL MPV (7.40-12.00) fL Neut % (Auto) (48.0-80.0) % Lymph % (Auto) (16.0-40.0) % [place] % (Auto) (0.0-15.0) % Eos % (Auto) (0.0-7.0) % Baso % (Auto) (0.0-1.5) % Neut # (Auto) (1.4-5.7) K/uL Lymph # (Auto) (0.6-2.4) K/uL [place] # (Auto) (0.0-0.8) K/uL Eos # (Auto) (0.0-0.7) K/uL Baso # (Auto) (0.0-0.1) K/uL Nucleated RBC % /100WBC Nucleated RBCs # K/uL Sodium (136-145) mmol/L Potassium (3.5-5.1) mmol/L Chloride (98-107) mmol/L Carbon Dioxide (21.0-32.0) mmol/L BUN (7.0-18.0) mg/dL Creatinine (0.6-1.0) mg/dL Est Cr Clr Drug Dosing mL/min Estimated GFR (MDRD) ml/min Glucose (74-106) mg/dL Hemoglobin A1c 6.2 (4.5-6.2) % Calcium (8.5-10.1) mg/dL Total Bilirubin (0.2-1.0) mg/dL AST (15-37) IU/L ALT (14-63) IU/L Alkaline Phosphatase (46-116) U/L Troponin I (0.000-0.056) ng/mL Total Protein (6.4-8.2) g/dL Albumin (3.4-5.0) g/dL Globulin (2.6-4.0) g/dL Albumin/Globulin Ratio (0.9-1.6) Triglycerides 73 (0-200) mg/dL Cholesterol 243 H (50-200) mg/dL LDL Cholesterol, Calc 144 (60-180) mg/dL VLDL Cholesterol 14 (5-55) mg/dL HDL Cholesterol 84 H (40-60) mg/dL Cholesterol/HDL Ratio 2.9 L (3.3-6.0) TSH 3rd Generation 0.79 (0.36-3.74) uIU/mL HCG, Qual POSITIVE H (NEG) Urine Color Urine Appearance Urine pH (5.0-8.0) Ur Specific [place] (1.001-1.035) Urine Protein (NEGATIVE) mg/dL Urine Glucose (UA) (NEGATIVE) mg/dL Urine Ketones (NEGATIVE) mg/dL Urine Occult Blood (NEGATIVE) Urine Nitrite (NEGATIVE) Urine Bilirubin (NEGATIVE) Urine Urobilinogen (<2.0) EU/dL Ur Leukocyte Esterase (NEGATIVE) 03/25/19 03/25/19 03/25/19 Range/Units 17:05 18:25 22:56 WBC (4.0-11.0) K/uL RBC (4.30-5.90) M/uL Hgb (12.0-16.0) g/dL Hct (36.0-46.0) % MCV (80.0-98.0) fL MCH (27.0-32.0) pg MCHC (31.0-37.0) g/dL RDW Std Deviation (28.0-62.0) fl RDW Coeff of Sumit (11.0-15.0) % Plt Count (150-400) K/uL MPV (7.40-12.00) fL Neut % (Auto) (48.0-80.0) % Lymph % (Auto) (16.0-40.0) % [place] % (Auto) (0.0-15.0) % Eos % (Auto) (0.0-7.0) % Baso % (Auto) (0.0-1.5) % Neut # (Auto) (1.4-5.7) K/uL Lymph # (Auto) (0.6-2.4) K/uL [place] # (Auto) (0.0-0.8) K/uL Eos # (Auto) (0.0-0.7) K/uL Baso # (Auto) (0.0-0.1) K/uL Nucleated RBC % /100WBC Nucleated RBCs # K/uL Sodium (136-145) mmol/L Potassium (3.5-5.1) mmol/L Chloride (98-107) mmol/L Carbon Dioxide (21.0-32.0) mmol/L BUN (7.0-18.0) mg/dL Creatinine (0.6-1.0) mg/dL Est Cr Clr Drug Dosing mL/min Estimated GFR (MDRD) ml/min Glucose (74-106) mg/dL Hemoglobin A1c (4.5-6.2) % Calcium (8.5-10.1) mg/dL Total Bilirubin (0.2-1.0) mg/dL AST (15-37) IU/L ALT (14-63) IU/L Alkaline Phosphatase (46-116) U/L Troponin I < 0.050 < 0.050 (0.000-0.056) ng/mL Total Protein (6.4-8.2) g/dL Albumin (3.4-5.0) g/dL Globulin (2.6-4.0) g/dL Albumin/Globulin Ratio (0.9-1.6) Triglycerides (0-200) mg/dL Cholesterol (50-200) mg/dL LDL Cholesterol, Calc (60-180) mg/dL VLDL Cholesterol (5-55) mg/dL HDL Cholesterol (40-60) mg/dL Cholesterol/HDL Ratio (3.3-6.0) TSH 3rd Generation (0.36-3.74) uIU/mL HCG, Qual (NEG) Urine Color YELLOW Urine Appearance CLEAR Urine pH 5.5 (5.0-8.0) Ur Specific [place] 1.025 (1.001-1.035) Urine Protein NEGATIVE (NEGATIVE) mg/dL Urine Glucose (UA) 250 H (NEGATIVE) mg/dL Urine Ketones NEGATIVE (NEGATIVE) mg/dL Urine Occult Blood NEGATIVE (NEGATIVE) Urine Nitrite NEGATIVE (NEGATIVE) Urine Bilirubin NEGATIVE (NEGATIVE) Urine Urobilinogen 0.2 (<2.0) EU/dL Ur Leukocyte Esterase NEGATIVE (NEGATIVE) Med Orders - Current: Current Medications Acetaminophen (Tylenol) 650 mg PO Q4H PRN PRN Reason: Pain (Mild 1-3)/fever Last Admin: 03/26/19 04:16 Dose: 650 mg Albuterol (Proventil Neb Soln) 2.5 mg NEB Q2H PRN PRN Reason: Shortness Of Breath/wheezing Amlodipine Besylate (Norvasc) 5 mg PO DAILY [facility] Last Admin: 03/26/19 08:30 Dose: 5 mg Amlodipine Besylate (Norvasc) 5 mg PO DAILY [facility] Diphenhydramine HCl (Benadryl) 25 mg IVPUSH Q4H PRN PRN Reason: swelling Hydrochlorothiazide (Hydrochlorothiazide) 25 mg PO DAILY [facility] Last Admin: 03/26/19 08:30 Dose: 25 mg Loratadine (Claritin) 10 mg PO BID [facility] Last Admin: 03/26/19 08:29 Dose: 10 mg Methylprednisolone Sodium Succinate (Solu-Medrol) 80 mg IVPUSH Q12H [facility] Last Admin: 03/25/19 21:47 Dose: 80 mg Ondansetron HCl (Zofran) 4 mg IVPUSH Q4H PRN PRN Reason: Nausea Sodium Chloride (Saline Flush) 2.5 ml FLUSH ASDIRECTED PRN PRN Reason: Keep Vein Open Discontinued Medications Aspirin (Aspirin) 324 mg PO ONETIME ONE Stop: 03/25/19 11:08 Last Admin: 03/25/19 11:18 Dose: 324 mg Clonidine HCl (Catapres) 0.1 mg PO ONETIME ONE Stop: 03/25/19 12:21 Last Admin: 03/25/19 12:33 Dose: 0.1 mg Diphenhydramine HCl (Benadryl) 50 mg IVPUSH ONETIME ONE Stop: 03/25/19 11:01 Last Admin: 03/25/19 11:23 Dose: 50 mg Famotidine (Pepcid) 20 mg IVPUSH ONETIME ONE Stop: 03/25/19 11:01 Last Admin: 03/25/19 11:21 Dose: 20 mg Methylprednisolone Sodium Succinate (Solu-Medrol) 125 mg IVPUSH ONETIME ONE Stop: 03/25/19 11:01 Last Admin: 03/25/19 11:18 Dose: 125 mg Nitroglycerin (Nitrostat) 0.4 mg SL Q5M PRN PRN Reason: Chest Pain
[2019-03-26 10:03] VITALS: BP 183/106
[2019-03-26] MEDS: methylPREDNISolone Sodium Succinate 40 MG/1 ML SDV IVPUSH SCH (10:03)
== END 2019-03-26 10:59 | disposition home or self-care (01) ==
LOC: MW.ED 10:56 → MW.MS 12:50
PROVIDERS: ADMIT Internal Medicine; ATTEND Internal Medicine
DX: T78.3XXA Angioneurotic edema, initial encounter (principal); T46.4X5A Adverse effect of angiotensin-converting-enzyme inhibitors, initial encounter; R07.89 Other chest pain; I10 Essential (primary) hypertension; R51 Headache; E66.9 Obesity, unspecified; F17.210 Nicotine dependence, cigarettes, uncomplicated; R73.03 Prediabetes; Z88.8 Allergy status to other drugs, medicaments and biological substances; Z79.899 Other long term (current) drug therapy
CPT/HCPCS: 36415; 71045; 80053; 80061; 81003; 83036; 84443; 84484; 84703; 85025; 93005; 96374; 96375; 96376; 99284; A9270; G0378; J1200; J2920; J2930; S0028; J3490

== ENCOUNTER 2023-02-20 11:39 | Emergency (ER) | payer SELFPAY ==
[2023-02-20] MEDS ORDERED: Acetaminophen/oxyCODONE 325-5 MG Tab PO ONE (12:51)
[2023-02-20 13:21] VITALS: PULSE 86
[2023-02-20 14:10] VITALS: BP 145/85
== END 2023-02-20 14:09 | disposition home or self-care (01) ==
LOC: MW.ED 11:39
DX: S81.802A Unspecified open wound, left lower leg, initial encounter (principal); I10 Essential (primary) hypertension; Z79.899 Other long term (current) drug therapy; Z88.8 Allergy status to other drugs, medicaments and biological substances; W10.9XXA Fall (on) (from) unspecified stairs and steps, initial encounter; Y93.01 Activity, walking, marching and hiking
CPT/HCPCS: 73562; 99283; A9270

== ENCOUNTER 2023-03-17 16:07 | Emergency (ER) | payer SELFPAY ==
[2023-03-17] MEDS ORDERED: Ibuprofen 800 MG Tab PO ONE (18:23)
[2023-03-17] MEDS ORDERED: oxyCODONE 5 MG Tab PO ONE (18:23)
[2023-03-17] MEDS ORDERED: Acetaminophen 500 MG Tab PO ONE (18:23)
[2023-03-17 18:25] VITALS: BP 198/126; PULSE 84
== END 2023-03-17 19:16 | disposition home or self-care (01) ==
LOC: MW.ED 16:07
DX: M25.462 Effusion, left knee (principal); I10 Essential (primary) hypertension; Z79.899 Other long term (current) drug therapy; Z88.8 Allergy status to other drugs, medicaments and biological substances
CPT/HCPCS: 73562; 99283; A9270